=== PATIENT | female | born 1985 | race Caucasian/White ===

== ENCOUNTER → 2016-04-27 | Outpatient (CLI) | payer BC ==
[~2016-04-27] MED LIST: KETO10TA PO; LUBI8CAP4 PO; OXYC-57 PO
--- NOTE | 2016-04-27 10:58 | DIAGNOSTIC IMAGING REPORT ---
ABDOMEN 2VIEW W/PA CHEST RTN CLINICAL HISTORY: K59.09 chronic constipation COMPARISON STUDY: 07/04/2015 FINDINGS: The soft tissues, psoas shadows, renal outlines and intestinal gas pattern appear normal. There is no evidence for bowel obstruction. There is no evidence for free intraperitoneal air. No abnormal abdominal calcifications are seen. A frontal view of the chest was performed and is unremarkable. IMPRESSION: Normal study. Electronically signed by: Marquise Oseguera M.D. 04/27/2016 10:57 AM Dictated Date/Time: 04/27/2016 10:57 AM
== END | disposition home or self-care (01) ==
LOC: C.RAD1850 10:37
PROVIDERS: ATTEND Internal Medicine
DX: K59.09 Other constipation (principal)

== ENCOUNTER → 2016-09-16 | Outpatient (CLI) | payer BC | END | disposition home or self-care (01) | LOC: C.PAPS 11:20 | PROVIDERS: ATTEND Obstetrics & Gynecology | DX: Z01.419 Encounter for gynecological examination (general) (routine) without abnormal findings (principal) ==

== ENCOUNTER → 2016-09-17 | Day surgery (SDC) | payer OTHER, BC ==
[2016-08-27 08:55] VITALS: Ht 157.5 cm; Wt 70.5 kg
[~2016-09-17] VITALS: Ht 157.5 cm; Wt 70.5 kg
[~2016-09-17] MED LIST changes: +ATROPINE SULFATE 0.1 MG/ML 5ML SYR IV PRN; +BUPIVACAINE/EPINEPHRINE 0.25% 10 ML VIAL ONE; +CEFAZOLIN 2000 MG/60 ML D5W IV SCH; +DEXAMETHASONE SOD INJ 4 MG/ML VIAL ONE; +EpHEDrine SULFATE INJ 50 MG/ML AMP IV PRN; +EpINEphrine INJ 1MG/ML AMP 1 MG/ML AMP ONE; +FENTANYL CITRATE INJ 50 MCG/1 ML 2 ML VIAL IV PRN; +FENTANYL CITRATE INJ 50 MCG/1 ML 2 ML VIAL ONE; +HYDROmorphone INJ 1 MG/ML SYR IV PRN; +KETOROLAC TROMETHAMINE 30 MG/ML VIAL ONE; +LACTATED RINGER'S 1000ML 1,000 ML IV SCH; +LIDOCAINE HCL 1% MPF 2 ML VIAL ONE; +LIDOCAINE HCL 2% 2 ML VIAL (20MG/ML) ONE; +MIDAZOLAM HCL 1 MG/ML 2ML VIAL ONE; +ONDANSETRON INJ 2 MG/ML 2 ML VIAL IV PRN; +ONDANSETRON INJ 2 MG/ML 2 ML VIAL ONE; +OXYCODONE/ACETAMINOPHEN 5-325 TAB PO PRN; +PROMETHAZINE HCL INJ 12.5 MG in SODIUM CHLORIDE 0.9% 50ML 50 ML IV PRN; +PROPOFOL IV EMULSION 10 MG/ML 20 ML VIAL IV ONE; +ROPIVACAINE 0.5% 5 MG/ML 30 ML VIAL ONE; +SODIUM CHLORIDE 0.9% 1000ML 1,000 ML IV SCH
--- NOTE | 2016-09-17 08:07 | History & Physical Bridge - [place] ---
H&P Re-Evaluation Bridge Note: I have examined the patient, reviewed the History & Physical and in the interval since the performance of the History & Physical I have noted the following changes of clinical significance: No changes noted
--- NOTE | 2016-09-17 11:38 | Discharge Instructions-SurgCtr ---
Discharge Instructions Date of Service Sep 17, 2016. Visit Reason for Visit: Left Shoulder Pain, Biceps Tendinitis Discharge Discharge Diagnosis / Problem: SAME ABOVE Discharge Goals Goal(s): Decrease discomfort, Improve function Activity Recommendations Activity Limitations: as noted below Lifting Limitations: until after follow-up appointment Shower/Bathe: tomorrow Anesthesia . Post Anesthesia Instructions: If you have had General Anesthesia or IV Sedation: * Do not drive today. * Resume driving when surgeon permits. * Do not make important decisions or sign legal documents today. * Call surgeon for: 1. Temperature elevations greater than 101 degrees F. 2. Uncontrollable pain. 3. Excessive bleeding. 4. Persistent nausea and vomiting. 5. Medication intolerance (nausea, vomiting or rash). * For nausea and vomiting use only clear liquids such as: tea, soda, bouillon until nausea subsides, then gradually increase diet as tolerated. * If you have any concerns or questions, call your surgeon's office. If physician is unavailable and it is an emergency, call 911 or go to the nearest emergency room. . Instructions / Follow-Up Instructions / Follow-Up MEDICATIONS: * Resume previous medications unless instructed otherwise by your surgeon. * Always take pain medication on a full stomach or with food to avoid upset stomach. * Do not drink alcohol or drive while taking narcotics. * Ibuprofen or Tylenol may be taken if narcotic not needed. SPECIAL CARE INSTRUCTIONS: __ None _X_ Keep extremity elevated and iced x 48 hours; apply ice 20-30 minutes 8-10 times/day. May remove at night. _X_ Sling *(WEAR NEEDED FOR COMFORT) __24 hrs/day __ Remove at night __ Shoulder Immobilizer __ 24 hrs/day __ Remove at night _X_ Dressing __ Maintain until seen in office, may shower with plastic over site _X_ Remove dressings in 24-48 hours and then may shower _X_ Cover incisions with band-aids after showering _X_ Do not remove steri-strips Call physician if chills or temperature rises above 102 degrees or pain unrelieved by prescribed pain medications at . . Diet Recommendations Home Diet: no limitations Fluid Restriction: None Procedures Procedures Performed: Left Shoulder Arthroscopy, Acromioplasty,Open Bicep Tenodesis Pending Studies Studies pending at discharge: no Work Instructions Return To Work: after follow-up Lifting Limitations: NO LIFTING MORE THAN 5 POUNDS WITH LEFT ARM Medical Emergencies . Who to Call and When: Medical Emergencies: If at any time you feel your situation is an emergency, please call 911 immediately. . Non-Emergent Contact Non-Emergency issues call your: Primary Care Provider Call Non-Emergent contact if: you have a fever, temperature is above 101.5 . . "Provider Documentation" section prepared by Ran Campuzano. .
[2016-09-17 12:30] VITALS: TEMP 37
[2016-09-17 12:49] VITALS: BP 111/72; PULSE 80; O2SAT 97
--- NOTE | 2016-09-17 12:55 | Anesthesia Progress Nt - [facility] ---
Anesthesia Post Op Note Date & Time Sep 17, 2016 at 12:54 Vital Signs Pain Intensity: 0 Vital Signs Past 12 Hours Date Time Temp Pulse Resp B/P (MAP) Pulse Ox O2 Delivery O2 Flow Rate FiO2 09/17/16 12:49 80 111/72 (85) 97 Room Air 09/17/16 12:30 37.0 88 110/74 (86) 96 Room Air 09/17/16 12:08 36.9 85 18 110/62 100 Mask 6 09/17/16 12:07 87 20 100 09/17/16 12:07 89 20 09/17/16 12:06 109/64 09/17/16 12:02 81 19 09/17/16 12:02 80 19 100 09/17/16 12:01 108/63 09/17/16 11:57 80 19 100 09/17/16 11:57 81 19 09/17/16 11:56 110/63 09/17/16 11:52 84 15 100 09/17/16 11:52 84 15 09/17/16 11:50 106/66 09/17/16 11:47 84 20 09/17/16 11:47 83 20 100 09/17/16 11:46 113/64 09/17/16 11:42 89 16 09/17/16 11:42 87 16 100 09/17/16 11:41 113/65 09/17/16 11:37 83 18 09/17/16 11:37 82 18 100 09/17/16 11:36 36.7 99 16 121/80 100 Diffusion Mask 6 09/17/16 11:36 121/80 09/17/16 10:32 0 09/17/16 10:27 84 30 09/17/16 10:26 81 17 127/78 100 09/17/16 10:26 81 09/17/16 10:21 88 09/17/16 10:21 85 26 100 09/17/16 10:20 79 17 125/78 100 09/17/16 10:20 79 09/17/16 10:15 73 09/17/16 10:15 76 23 109/80 100 09/17/16 10:11 111/72 09/17/16 10:10 94 12 100 09/17/16 10:10 96 09/17/16 10:09 118/78 09/17/16 10:05 89 09/17/16 10:00 79 09/17/16 09:55 76 09/17/16 09:50 75 09/17/16 09:45 79 09/17/16 08:40 36.7 80 20 111/67 (82) 100 Room Air Notes Mental Status: alert / awake / arousable, participated in evaluation Pt Amnestic to Procedure: Yes Nausea / Vomiting: adequately controlled Pain: adequately controlled Airway Patency, RR, SpO2: stable & adequate BP & HR: stable & adequate Hydration State: stable & adequate Anesthetic Complications: no major complications apparent
--- NOTE | 2016-09-17 15:30 | [facility] Post Operative Brief Note ---
Immediate Operative Summary Operative Date Sep 17, 2016. Pre-Operative Diagnosis Left Shoulder Pain, Biceps Tendonitis Post-Operative Diagnosis same Procedure(s) Performed Left Shoulder Arthroscopy, Acromioplasty,Open Bicep Tenodesis Surgeon Dr. Halima Holloway Hide Salter Surgeon(s) Cj Campuzano PA-C Estimated Blood Loss 5cc Findings as above Specimens none Complication(s) None Disposition Recovery Room / PACU
--- NOTE | 2016-09-17 18:13 | OPERATIVE REPORT ---
DATE OF OPERATION: 09/17/2016 PREOPERATIVE DIAGNOSIS: Subacromial bursitis and biceps tendonitis of the left shoulder. POSTOPERATIVE DIAGNOSIS: Same. PROCEDURE: Left shoulder diagnostic arthroscopy with limited debridement, acromioplasty and open subpectoral biceps tenodesis. SURGEON: Dr. Itz Holloway. LOCAL SALES MANAGER: Cj Campuzano PA-C, whose assistance was necessary for positioning the arm and helping with instrumentation. ANESTHESIA: General with a left interscalene nerve block. COMPLICATIONS: None. CONDITION: Stable to PACU. INDICATIONS: Lucia is a very pleasant 30-year-old female who works with a [employer]. Back in November 2015, she injured her left shoulder. MRI and clinical examination were diagnostic for bursitis as well as biceps tendonitis of the left shoulder. After failing conservative treatment extensively, she elected to proceed with a shoulder arthroscopy. DESCRIPTION OF PROCEDURE: On 09/17/2013, she arrived at [facility] for the above procedure. She was seen in the preoperative holding area and the operative extremity was identified and signed. She was given a preoperative antibiotic and a left interscalene nerve block. She was taken back to the operating room, laid on the table in supine position and put under general anesthesia. She was then put into the beachchair position. The left shoulder was prepped and draped in sterile fashion. Time-out was done and the extremity was properly identified. A scope was introduced in the posterior portal. Diagnostic arthroscopy showed no cartilage damage to the humeral head or the glenoid. The capsule looked intact without signs of adhesive capsulitis. The biceps tendon was red and inflamed on the dorsal aspect. The rotator cuff was intact throughout. An anterior portal was made. A shaver was used to do a limited debridement of the intraarticular structures and the biceps tendon was arthroscopically tenotomized. The scope was then put into the subacromial space. A lateral portal was made. A shaver was used to do a complete subacromial and subdeltoid bursectomy. An ablator was used to tease the coracoacromial ligament off the undersurface of the acromion and a 5-0 chuyita was used to complete an acromioplasty of a Bigliani type 2 acromion. A shaver was used to remove any excess debris. The bursal side of the rotator cuff was examined extensively without evidence of tear. Arthroscopic instruments were removed from the shoulder. Attention was turned to an open biceps tenodesis. A small incision was made over the inferior border of the pec major. Dissection was taken down through the fascia and the long head of the biceps tendon was delivered out of the wound. The tendon was then whip stitched at the anticipated level of tenodesis and the remainder of the tendon was discarded. A 5 mm hole was drilled in the bicipital groove and the biceps tendon was tenodesed with an Arthrex biceps button that was passed through the posterior cortex and a tension slide technique to deliver the tendon into the 5 mm hole. This gave good fixation. The wound was then irrigated and closed with 3-0 Vicryl and running 3-0 Monocryl. Steri-strips were placed. Portal sites were closed with 3-0 nylon. She was then placed in a soft dressing and a regular arm sling. She was then extubated, transferred to a [facility] and taken to the postanesthesia care unit in stable condition. She tolerated the procedure well. I attest to the content of the Intraoperative Record and any orders documented therein. Any exception s are noted below.
== END | disposition home or self-care (01) ==
LOC: X.SURG 08:29
PROVIDERS: ATTEND Orthopaedic Surgery
DX: M75.52 Bursitis of left shoulder (principal); M75.22 Bicipital tendinitis, left shoulder

== ENCOUNTER → 2017-09-21 | Outpatient (CLI) | payer OTHER ==
[~2017-09-21] MED LIST changes: -ATROPINE SULFATE 0.1 MG/ML 5ML SYR IV PRN; -BUPIVACAINE/EPINEPHRINE 0.25% 10 ML VIAL ONE; -CEFAZOLIN 2000 MG/60 ML D5W IV SCH; -DEXAMETHASONE SOD INJ 4 MG/ML VIAL ONE; -EpHEDrine SULFATE INJ 50 MG/ML AMP IV PRN; -EpINEphrine INJ 1MG/ML AMP 1 MG/ML AMP ONE; -FENTANYL CITRATE INJ 50 MCG/1 ML 2 ML VIAL IV PRN; -FENTANYL CITRATE INJ 50 MCG/1 ML 2 ML VIAL ONE; -HYDROmorphone INJ 1 MG/ML SYR IV PRN; -KETO10TA PO; -KETOROLAC TROMETHAMINE 30 MG/ML VIAL ONE; -LACTATED RINGER'S 1000ML 1,000 ML IV SCH; +LEVO1IUD2 PV; -LIDOCAINE HCL 1% MPF 2 ML VIAL ONE; -LIDOCAINE HCL 2% 2 ML VIAL (20MG/ML) ONE; +LORA-741 PO; -MIDAZOLAM HCL 1 MG/ML 2ML VIAL ONE; -ONDANSETRON INJ 2 MG/ML 2 ML VIAL IV PRN; -ONDANSETRON INJ 2 MG/ML 2 ML VIAL ONE; -OXYC-57 PO; -OXYCODONE/ACETAMINOPHEN 5-325 TAB PO PRN; -PROMETHAZINE HCL INJ 12.5 MG in SODIUM CHLORIDE 0.9% 50ML 50 ML IV PRN; -PROPOFOL IV EMULSION 10 MG/ML 20 ML VIAL IV ONE; -ROPIVACAINE 0.5% 5 MG/ML 30 ML VIAL ONE; -SODIUM CHLORIDE 0.9% 1000ML 1,000 ML IV SCH
== END | disposition home or self-care (01) ==
LOC: C.PAPS 09:03
PROVIDERS: ATTEND Obstetrics & Gynecology
DX: Z01.419 Encounter for gynecological examination (general) (routine) without abnormal findings (principal)